=== PATIENT | female | born 1965 | race African-American/Black ===

== ENCOUNTER 2016-11-04 05:27 | Emergency (ER) | payer OTHER ==
[~2016-11-04] VITALS: Ht 170.2 cm; Wt 104.3 kg
--- NOTE | 2016-11-04 05:38 | Emergency Room Report ---
History of Present Illness General Chief Complaint: Abdominal Pain Source: Patient Present Illness HPI Is a 51-year-old female with a psych history. She presents with chief complaint abdominal pain right flank pain. Onset tonight. No vomiting or diarrhea. No fever or chills. Nothing made it better or nothing made it worse. History is limited because she is a poor historian. Allergies: Coded Allergies: No Known Allergies (Unverified , 11/04/16) Patient History Past Medical History: see triage record, old chart reviewed, psych hx Past Surgical History: other Pertinent Family History: other Social History: Denies: smoking Last Menstrual Period: NA Now: No Immunizations: other Reviewed Nursing Documentation: PMH: Agreed, PSxH: Agreed Review of Systems Eye: Denies: blurred vision, eye pain ENT: Denies: ear pain, nose congestion, throat swelling Respiratory: Denies: cough, shortness of breath Cardiovascular: Denies: chest pain, palpitations Gastrointestinal: Reports: abdominal pain, Denies: diarrhea, nausea, vomiting Musculoskeletal: Denies: back pain, joint pain Skin: Denies: rash Neurological: Denies: headache, numbness Endocrine: Denies: increased thirst, increased urine Hematologic/Lymphatic: Denies: easy bruising All Other Systems: negative except mentioned in HPI Physical Exam Vital Signs Date Time Temp Pulse Resp B/P Pulse Ox O2 Delivery O2 Flow Rate FiO2 11/04/16 05:21 98.2 80 18 133/79 98 Room Air vitals normal Sp02 EP Interpretation: reviewed, normal General Appearance: well appearing, no apparent distress, alert Head: normocephalic, atraumatic Eyes: bilateral eye EOMI, bilateral eye PERRL ENT: hearing grossly normal, normal pharynx Neck: full range of motion, supple, no meningismus Respiratory: chest non-tender, lungs clear, normal breath sounds Cardiovascular #1: regular rate, rhythm, no murmur Gastrointestinal: normal bowel sounds, no mass, no organomegaly, no bruit, non- distended, tenderness - Right flank Musculoskeletal: back normal, gait/station normal, normal range of motion Neurologic: alert, oriented x3 Psychiatric: mood/affect normal Skin: warm/dry Medical Decision Making Diagnostic Impression: Primary Impression: Abdominal pain in female Additional Impression: Obesity (BMI 30-39.9) ER Course She present with abdominal pain with vomiting. She is pain-free now. Eating. Labs pending. CT scan unremarkable. If labs negative,will dc to psych facility. She has urinary tract infection will treat with antibiotics. Lab Results Impression labs unremarkable. CT/MRI/US Diagnostic Results CT/MRI/US Diagnostic Results : Imaging Test Ordered: CT scan abdomen and pelvis Impression read by radiologist. Negative appendicitis. No obstruction. Last Vital Signs Date Time Temp Pulse Resp B/P Pulse Ox O2 Delivery O2 Flow Rate FiO2 11/04/16 05:21 98.2 80 18 133/79 98 Room Air Status: improved Disposition: HOME, SELF-CARE Condition: Stable Patient Instructions: Abdominal Pain, Adult SAM MARTINEZ M.D. Nov 04, 2016 05:38
[2016-11-04 05:45] VITALS: BP 128/73
[2016-11-04 07:07] LABS: MEAN CORPUSCULAR HEMOGLOBIN 29.9 PG (27.0-31.0); MEAN CORPUSCULAR HGB CONC 32.8 G/DL (32.0-36.0); MEAN CORPUSCULAR VOLUME 91 FL (80-99); MEAN PLATELET VOLUME 8.2 FL (6.5-10.1); PLATELET COUNT 169 K/UL (150-450); RED BLOOD COUNT 4.34 M/UL (4.20-5.40); RED CELL DISTRIBUTION WIDTH 15.3 % (11.6-14.8); WHITE BLOOD COUNT 6.2 K/UL (4.8-10.8)
[2016-11-04 07:11] LABS: APPEARANCE,URINE CLEAR; KETONES,URINE NEGATIVE (NEGATIVE); LEUKOCYTE ESTERASE ,URINE NEGATIVE (NEGATIVE); NITRITE,URINE NEGATIVE (NEGATIVE); PH,URINE 6.5 (4.5-8.0); PROTEIN,URINE NEGATIVE (NEGATIVE); UROBILINOGEN,URINE 1 MG/DL (0.0-1.0)
[2016-11-04 07:20] LABS: ALANINE AMINOTRANSFERASE 22 U/L (3-33); ALBUMIN/GLOBULIN RATIO 0.8 (1.0-2.7); ANION GAP 12 (5-15); ASPARTATE AMINO TRANSFERASE 14 U/L (5-40); CALCIUM 9.1 mg/dL (8.6-10.2); CARBON DIOXIDE 28 mEQ/L (20-30); CHLORIDE 103 mEQ/L (98-107); CREATININE 0.8 mg/dL (0.5-0.9); GLOMERULAR FILTRATION RATE > 60 mL/min (>60); HEMOLYSIS 4; LIPASE 15 U/L (< 60); POTASSIUM 3.7 mEQ/L (3.4-4.9); SODIUM 143 mEQ/L (135-145); TOTAL PROTEIN 7.3 g/dL (6.6-8.7)
[2016-11-04 07:32] LABS: BACTERIA,URINE FEW /HPF; SQUAMOUS EPITHELIAL CELL,UR FEW /LPF (NONE/OCC); WBC,URINE 0-2 /HPF (0 - 2)
[2016-11-04 07:36] VITALS: BP 126/70
[2016-11-04 07:53] VITALS: BP 126/70
--- NOTE | 2016-11-04 08:45 | Diagnostic Imaging Report ---
Indications: Abdominal/flank pain Technique: Continuous helical CT imaging of the abdomen and pelvis was performed with automatic exposure control on a Siemens sensation [address] scanner. Axial, coronal, and sagittal images were reconstructed at 3 mm slice thickness. No oral or IV contrast was administered per protocol. CTDI volume(s): 18 mGy Total DLP: 952 mGy-cm Findings: Comparison: None. Kidneys, ureters, urinary bladder demonstrate no intraparenchymal or intraluminal stones, collecting system or ureteral dilation, perinephric or periureteral stranding. The appendix is unremarkable. The gastrointestinal tract is normal in caliber. No extraluminal gas or fluid collections are demonstrated. Remainder of visualized abdominopelvic anatomy demonstrates no other obvious abnormality, though lack of oral and IV contrast limits evaluation. Pleural-based linear densities, nonspecific increased interstitial markings in both lung bases. Heart upper limits of normal in size. Small pericardial effusion, 7 mm maximal diameter.. Disc space narrowing with marginal osteophyte formation, vacuum phenomenon, facet sclerosis and hypertrophy in lumbar, lower thoracic spine. IMPRESSION: No evidence of renal or ureteral stone, hydronephrosis or hydroureter. Unremarkable appendix -- no evidence of acute appendicitis. No other evidence of acute abdominopelvic disease. Lack of oral and IV contrast limits evaluation, however, and subtle but potentially significant abnormalities may be missed. Repeat CT scan with full oral and IV contrast preparation recommended for more complete evaluation, as clinically indicated. Borderline cardiomegaly Small pericardial effusion Pulmonary bibasal subsegmental atelectasis and nonspecific interstitial infiltrates Degenerative spondylosis Written preliminary report placed in PACS to [id number] at [address] scanner at [facility] is accredited by the [employer] and the scans are performed using protocols designed to limit radiation exposure to as low as reasonably achievable to attain images of sufficient resolution adequate for diagnostic evaluation.
[2016-11-04 08:56] LABS: ANISOCYTOSIS 1+; BAND NEUTROPHILS % (MANUAL) 1 % (0-8); BASOPHILS % (MANUAL) 0 % (0-2); EOSINOPHILS % (MANUAL) 25 % (0-3); HYPOCHROMASIA 1+; LYMPHOCYTES % (MANUAL) 14 % (20-45); NEUTROPHILS % (MANUAL) 55 % (45-75); PLATELET ESTIMATE ADEQUATE; PLATELET MORPHOLOGY NORMAL; TOTAL CELLS COUNTED 100
[2016-11-05 10:12] LABS: OTHERS PATHOLOGIST COMMENT
== END 2016-11-04 08:03 | disposition home or self-care (01) ==
LOC: EDBD 05:27 → EMR 06:31
DX: R10.9 Unspecified abdominal pain (principal); E66.9 Obesity, unspecified; Z68.30 Body mass index [BMI] 30.0-30.9, adult
CPT/HCPCS: 36415; 74176; 80053; 81003; 83690; 85007; 85025; 99284